=== PATIENT | female | born 1975 | race Caucasian/White ===

== ENCOUNTER 2018-09-22 05:40 | Inpatient (IN) | payer MEDICAID ==
[~2018-09-22] VITALS: Ht 154.9 cm; Wt 78.0 kg
[2018-09-22] MEDS ORDERED: CLINDAMYCIN PHOSPHATE 600 MG/4 ML VIAL IV ONE (07:00)
[2018-09-22] MEDS ORDERED: LEVOFLOXACIN 500 MG/D5W 100 ML IV ONE (07:00)
[2018-09-22] MEDS ORDERED: OMEP40CA33 PO (07:16)
[2018-09-22] MEDS ORDERED: HYDR25TA4 PO (07:16)
[2018-09-22] MEDS ORDERED: DICY10CA13 PO (07:16)
[2018-09-22] MEDS ORDERED: ALBMDI INH (07:16)
[2018-09-22] MEDS ORDERED: CEL20 PO (07:16)
[2018-09-22] MEDS ORDERED: WATER FOR IRRIGATION,STERILE 1,000 ML IRRIG.SOLN IR ONE (07:20)
[2018-09-22] MEDS ORDERED: MORPHINE SULFATE 10MG/10ML PF AMP EP ONE (07:20)
[2018-09-22] MEDS ORDERED: MIDAZOLAM HCL 5 MG/5 ML VIAL IVP ONE (07:20)
[2018-09-22] MEDS ORDERED: fentaNYL CITRATE/PF 100 MCG/2 ML AMP IVP ONE (07:20)
[2018-09-22] MEDS ORDERED: KETOROLAC TROMETHAMINE 30 MG VIAL IVP ONE (07:20)
[2018-09-22] MEDS ORDERED: PROPOFOL 200MG/ 20ML VIAL (DIPRIVAN) IV ONE (07:20)
[2018-09-22] MEDS ORDERED: MORPHINE SULFATE 10MG/10ML PF AMP SP SCH (08:15)
[2018-09-22] MEDS ORDERED: KETOROLAC TROMETHAMINE 30 MG VIAL IVP PRN (08:15)
[2018-09-22] MEDS ORDERED: NALBUPHINE HCL 10 MG/ML AMP IVP PRN (08:15)
[2018-09-22] MEDS ORDERED: DIPHENHYDRAMINE INJ 50 MG/ML VIAL IVP PRN (08:15)
[2018-09-22] MEDS ORDERED: ONDANSETRON HCL 4 MG/2 ML VIAL IVP PRN ×3 (08:15→09:00)
[2018-09-22] MEDS ORDERED: fentaNYL CITRATE/PF 100 MCG/2 ML AMP IVP PRN ×2 (08:15)
[2018-09-22] MEDS ORDERED: NALOXONE HCL 0.4 MG/ML AMP (NARCAN) IVP PRN ×2 (08:15)
[2018-09-22] MEDS ORDERED: KETOROLAC TROMETHAMINE 60 MG/2 ML VIAL IM PRN (08:15)
[2018-09-22] MEDS ORDERED: IBUPROFEN 600 MG TABLET PO PRN (09:00)
[2018-09-22] MEDS ORDERED: ONDANSETRON HCL 4 MG/2 ML VIAL ONE (09:34)
[2018-09-22] MEDS ORDERED: fentaNYL CITRATE/PF 100 MCG/2 ML AMP ONE (09:50)
[2018-09-22 10:10] VITALS: BP_SYST 81
[2018-09-22] MEDS: ACETAMINOPHEN/CODEINE 300 MG-30 MG TABLET PO PRN ×2 (10:36→15:06)
[2018-09-22] MEDS ORDERED: LR 600 ML IV ONE ×2 (12:00→12:08)
[2018-09-22 13:09] VITALS: BP_SYST 101
[2018-09-22] MEDS: MORPHINE 4 MG/ML INJ. SYRINGE IVP PRN ×2 (13:38→17:57)
[2018-09-22 13:40] VITALS: BP_SYST 111
[2018-09-22 16:43] VITALS: BP_SYST 101
[2018-09-22 16:57] VITALS: BP_SYST 102
[2018-09-22] MEDS: LR 1,000 ML IV SCH (22:31)
[2018-09-22] MEDS: OXYCODONE/ACETAMINOPHEN *10*mg/325 mg TABLET PO PRN (23:34)
[2018-09-23 01:25] VITALS: BP_SYST 106
[2018-09-23] MEDS: PROMETHAZINE HCL 25 MG TABLET PO PRN (03:31)
[2018-09-23 07:55] LABS: HEMATOCRIT 27.8 % (36-48); HEMOGLOBIN 9.3 g/dL (12.0-16.0); MEAN CORPUSCULAR HEMOGLOBIN 31 pg (27-31); MEAN CORPUSCULAR HGB CONC 34 % (32-36); MEAN CORPUSCULAR VOLUME 94 fL (79.0-98.0); RED BLOOD CELL COUNT(AUTO) 2.96 MIL/uL (4.2-6.2); RED CELL DISTRIBUTION WIDTH 13.1 % (9.0-15.0); WHITE BLOOD COUNT (AUTO) 7.9 K/uL (4.8-10.8)
[2018-09-23 07:56] LABS: BASOPHILS % (AUTO) 0.3 % (0.0-2.0); EOSINOPHILS % (AUTO) 0.4 % (0.0-4.0); LYMPHOCYTES # (AUTO) 2.3 K/uL (1.0-5.5); LYMPHOCYTES % (AUTO) 29.6 % (20.5-51.5); MONOCYTES # (AUTO) 0.6 K/uL (0.0-1.0); MONOCYTES % (AUTO) 7.9 % (1.7-9.3); NEUTROPHILS # (AUTO) 4.9 K/uL (1.8-7.7); NEUTROPHILS % (AUTO) 61.8 % (40.0-70.0); PLATELET COUNT (AUTO) 260 K/uL (130-430)
[2018-09-23 08:00] VITALS: BP_SYST 105
[2018-09-23] MEDS: HYDROCHLOROTHIAZIDE 25 MG TABLET (HCTZ) PO SCH (09:00)
[2018-09-23] MEDS ORDERED: OMEPRAZOLE 20 MG CAPSULE.DR (PriLOSEC) PO SCH (09:00)
[2018-09-23] MEDS: CITALOPRAM HYDROBROMIDE 20 MG TABLET PO SCH (09:09)
[2018-09-23] MEDS: PANTOPRAZOLE SODIUM 40 MG TAB PO SCH ×2 (09:09→20:22)
[2018-09-23] MEDS: OXYCODONE/ACETAMINOPHEN *10*mg/325 mg TABLET PO PRN ×3 (09:13→20:22)
[2018-09-23] MEDS: LR 1,000 ML IV SCH ×3 (11:43→23:22)
[2018-09-23] MEDS: ACETAMINOPHEN/CODEINE 300 MG-30 MG TABLET PO PRN (11:53)
[2018-09-23 12:28] VITALS: BP_SYST 99
[2018-09-23 16:15] VITALS: BP_SYST 98
[2018-09-23] MEDS: DIPHENHYDRAMINE HCL 25 MG CAPSULE PO PRN (16:52)
[2018-09-23 21:15] VITALS: BP_SYST 120
[2018-09-23] MEDS ORDERED: METOCLOPRAMIDE HCL 10 MG/2 ML VIAL IVP PRN (22:00)
[2018-09-23] MEDS ORDERED: BETHANECHOL CHLORIDE 25 MG TABLET (URECHOLINE) PO ONE (22:00)
[2018-09-23] MEDS ORDERED: HYDROmorphone 1 MG INJ. 1 MG/ML AMPUL IVP PRN (22:45)
[2018-09-23] MEDS ORDERED: SIMETHICONE 80 MG TAB.CHEW PO ONE (22:45)
[2018-09-23] MEDS: HYDROmorphone 1 MG INJ. 1 MG/ML AMPUL IVP PRN (23:15)
[2018-09-23 23:40] VITALS: BP_SYST 110
[2018-09-24] MEDS: OXYCODONE/ACETAMINOPHEN *10*mg/325 mg TABLET PO PRN ×3 (02:19→22:30)
[2018-09-24] MEDS: HYDROmorphone 1 MG INJ. 1 MG/ML AMPUL IVP PRN ×3 (05:50→20:12)
[2018-09-24] MEDS: DIPHENHYDRAMINE HCL 25 MG CAPSULE PO PRN ×2 (05:55→22:29)
[2018-09-24 08:02] VITALS: BP_SYST 101
[2018-09-24] MEDS: SIMETHICONE 80 MG TAB.CHEW PO SCH ×4 (08:42→20:09)
[2018-09-24] MEDS: CITALOPRAM HYDROBROMIDE 20 MG TABLET PO SCH (08:42)
[2018-09-24] MEDS: BETHANECHOL CHLORIDE 25 MG TABLET (URECHOLINE) PO SCH ×4 (08:42→20:09)
[2018-09-24] MEDS: PANTOPRAZOLE SODIUM 40 MG TAB PO SCH ×2 (08:42→20:09)
[2018-09-24] MEDS: HYDROCHLOROTHIAZIDE 25 MG TABLET (HCTZ) PO SCH (08:43)
[2018-09-24] MEDS: LR 1,000 ML IV SCH ×2 (12:25→22:23)
[2018-09-24] MEDS: PROMETHAZINE HCL 25 MG TABLET PO PRN (12:25)
[2018-09-24 16:22] VITALS: BP_SYST 108
[2018-09-24 20:00] VITALS: BP_SYST 103
[2018-09-25] VITALS: BP_SYST 110
[2018-09-25] MEDS: HYDROmorphone 1 MG INJ. 1 MG/ML AMPUL IVP PRN ×4 (03:03→21:27)
[2018-09-25] MEDS: DIPHENHYDRAMINE HCL 25 MG CAPSULE PO PRN ×2 (03:07→21:26)
[2018-09-25 08:00] VITALS: BP_SYST 114
[2018-09-25] MEDS: BETHANECHOL CHLORIDE 25 MG TABLET (URECHOLINE) PO SCH ×4 (08:30→21:26)
[2018-09-25] MEDS: PANTOPRAZOLE SODIUM 40 MG TAB PO SCH ×2 (08:31→21:17)
[2018-09-25] MEDS: SIMETHICONE 80 MG TAB.CHEW PO SCH ×4 (08:31→21:17)
[2018-09-25] MEDS: CITALOPRAM HYDROBROMIDE 20 MG TABLET PO SCH (08:31)
[2018-09-25] MEDS: HYDROCHLOROTHIAZIDE 25 MG TABLET (HCTZ) PO SCH (08:32)
[2018-09-25] MEDS: PROMETHAZINE HCL 25 MG TABLET PO PRN (08:35)
[2018-09-25] MEDS: LR 1,000 ML IV SCH ×2 (08:38→21:26)
[2018-09-25] MEDS: OXYCODONE/ACETAMINOPHEN *10*mg/325 mg TABLET PO PRN ×2 (11:40→17:21)
[2018-09-25 13:08] VITALS: BP_SYST 105
[2018-09-25 16:54] VITALS: BP_SYST 123
[2018-09-26] MEDS: PROMETHAZINE HCL 25 MG TABLET PO PRN
[2018-09-26 00:11] VITALS: BP_SYST 116
[2018-09-26] MEDS: HYDROmorphone 1 MG INJ. 1 MG/ML AMPUL IVP PRN ×2 (01:56→05:47)
[2018-09-26] MEDS: DIPHENHYDRAMINE HCL 25 MG CAPSULE PO PRN (05:45)
[2018-09-26] MEDS: LR 1,000 ML IV SCH (06:42)
[2018-09-26 08:33] VITALS: BP_SYST 101
[2018-09-26] MEDS: CITALOPRAM HYDROBROMIDE 20 MG TABLET PO SCH (08:35)
[2018-09-26] MEDS: PANTOPRAZOLE SODIUM 40 MG TAB PO SCH (08:35)
[2018-09-26] MEDS: HYDROCHLOROTHIAZIDE 25 MG TABLET (HCTZ) PO SCH (08:36)
[2018-09-26] MEDS: SIMETHICONE 80 MG TAB.CHEW PO SCH (08:36)
[2018-09-26] MEDS: OXYCODONE/ACETAMINOPHEN *10*mg/325 mg TABLET PO PRN ×2 (08:43)
[2018-09-26] MEDS: BETHANECHOL CHLORIDE 25 MG TABLET (URECHOLINE) PO SCH (10:11)
[2018-09-26 10:48] VITALS: BP_SYST 101
[2018-09-26 11:53] VITALS: BP_SYST 100
== END 2018-09-26 11:28 | disposition home or self-care (01) | DRG 513 ==
LOC: SMU 05:40
PROVIDERS: ADMIT Obstetrics & Gynecology; ATTEND Obstetrics & Gynecology
PROC: 3E02340 Introduction of Influenza Vaccine into Muscle, Percutaneous Approach (ICD-10-PCS; 2018-09-22)
PROC: 0UT90ZL Resection of Uterus, Supracervical, Open Approach (ICD-10-PCS; principal; 2018-09-22 07:30)
DX: N92.1 Excessive and frequent menstruation with irregular cycle (principal); G89.29 Other chronic pain; Z98.891 History of uterine scar from previous surgery; Z23 Encounter for immunization
CPT/HCPCS: 36415; 76856-TC; 85025; 86886; 86900; 86901; 87081; 88307; 90656; J1170; J1200; J1885; J1956; J2250; J2270; J2274; J2405; J2704; J3010; J3490; J7120; Q0163; Q0169

== ENCOUNTER 2023-07-11 16:44 | Emergency (ER) | payer MEDICAID ==
[~2023-07-11] VITALS: Ht 154.9 cm; Wt 79.4 kg
[~2023-07-11 16:44] MED LIST: ALBMDI INH; CEL20 PO; DICY-14 PO; HYDR25TA4 PO; OMEP40CA20 PO
[2023-07-11 16:56] VITALS: BP_SYST 141; PULSE 88; RESP 18; TEMP 97.8; O2SAT 98
[2023-07-11] MEDS ORDERED: HYDROcodone/ACETAMIN 5-325 MG TAB (NORCO/ VICODIN) PO ONE (17:15)
[2023-07-11] MEDS ORDERED: ZAN4 PO ×3 (18:11→20:19)
[2023-07-11] MEDS ORDERED: LIDO1ADH14 TP ×2 (18:11)
[2023-07-11] MEDS ORDERED: NABU-140 PO ×3 (18:11→20:19)
[2023-07-11] MEDS ORDERED: LIDO1ADH22 TP (20:19)
== END 2023-07-11 19:30 | disposition home or self-care (01) ==
LOC: SED 16:44
DX: M54.12 Radiculopathy, cervical region (principal); R20.2 Paresthesia of skin; Z88.8 Allergy status to other drugs, medicaments and biological substances; Z79.899 Other long term (current) drug therapy
CPT/HCPCS: 72125-TC; 76376; 99284